=== PATIENT | female | born 1965 | race Caucasian/White ===

== ENCOUNTER 2022-10-07 15:06 | Emergency (ER) | payer SELFPAY ==
--- NOTE | ~2022-10-07 | XR_ITS ---
EXAMINATION: XR ankle RT min 3V DATE: 10/07/2022 15:59 INDICATION: Right ankle swelling post fall down stairs TECHNIQUE: Anteroposterior, oblique, mortise, and lateral views of the right ankle were obtained. COMPARISON: None. FINDINGS: Oblique fracture of the distal metaphysis of the right fibula which exits the medial cortex at the le anabel of the tibiotalar joint line. There is an oblique fracture across the medial malleolus which exte nds to the medial cortex at the angle of the ankle mortise. Both fractures are minimally displaced wi th minimal anterior angulation of the fibular fracture. No fracture of the posterior malleolus or rima ar dome. Prominent soft tissue swelling about the right ankle. There also appears be an ankle joint e ffusion. Joint spaces are normal. IMPRESSION: 1. Minimally displaced medial and lateral malleolar fractures. Reviewed, dictated and finalized at location [facility]
[2022-10-07 15:11] VITALS: BP 106/69; PULSE 94; RESP 18; TEMP 36.1; O2SAT 100
[2022-10-07] MEDS: HYDROcodone/acetaminophen (*CRX) 5-325 MG TABLET 1 TAB PO (16:34)
--- NOTE | 2022-10-07 17:06 | ED.LOWEXIN ---
HPI - Extremity Injury (Lower) General Chief Complaint: Extremity Injury, Lower Stated Complaint: fell down 2 stairs, right ankle pain Time Seen by Provider: 10/07/22 16:25 History of Present Illness HPI Narrative: Patient is a 57-year-old female who presents ER with right ankle injury. Was walking down 2 stairs when she suffered an inversion injury. Sudden onset pain and unable to bear weight. Has swelling bilateral malleoli. No numbness or tingling. Did not fall and strike her head or lose consciousness. Symptoms only improved by sitting still. Related Data Allergies Allergy/AdvReac Type Severity Reaction Status Date / Time shellfish derived Allergy Severe Anaphylaxis Verified 10/07/22 16:11 Review of Systems Review of Systems: All systems reviewed & are unremarkable except as noted in HPI and below Constitutional: Constitutional: Denies chills and Denies fever(s) Gastrointestinal: Gastrointestinal: Denies nausea and Denies vomiting Musculoskeletal: Musculoskeletal: Reports arthralgias and Reports joint swelling Neurologic: Denies syncope, Denies focal weakness and Denies numbness PMFSH Past Medical History Medical History (Updated 10/07/22 @ 17:16 by Roland Mora MD) Asthma Surgical History Surgical History (Updated 10/07/22 @ 17:16 by Roland Mora MD) History of partial hysterectomy Social History Social History (Updated 10/07/22 @ 17:16 by Roland Mora MD) Smoking status: Never smoker Exam Narrative: GENERAL: Well-appearing, well-nourished, and in no acute distress. HEAD: Normocephalic, atraumatic. HEART: Regular rate and rhythm. Normal peripheral pulses. EXTREMITIES: Right ankle with bimalleolar tenderness and swelling. Normal dorsalis pedis and posterior tibial pulses. Sensation intact. No tenderness or deformity to the knee/proximal tib-fib. SKIN: Warm, dry, no rash. NEURO: No focal deficits. Alert and oriented x3. PSYCH: Normal mood and affect. Course Course Emergency Course: Patient educated on how to use crutches. Discussed avoidance strategies for blood clots since they will be driving back to [facility]. Disc was provided with images. Discharge. Vital Signs Vital signs: Vital Signs Temperature 97.0 F L 10/07/22 15:11 Pulse Rate 94 10/07/22 15:11 Respiratory Rate 18 10/07/22 15:11 Blood Pressure 106/69 10/07/22 15:11 Pulse Oximetry 100 10/07/22 15:11 Oxygen Delivery Room Air 10/07/22 15:11 Temperature 97.0 F L 10/07/22 15:11 Pulse Rate 94 10/07/22 15:11 Respiratory Rate 18 10/07/22 15:11 Blood Pressure 106/69 10/07/22 15:11 Pulse Oximetry 100 10/07/22 15:11 Oxygen Delivery Room Air 10/07/22 15:11 Procedures Orthopedic Splinting/Casting Injury #1: Splinting/Casting Date: 10/07/22 Splinting/Casting Time: 16:45 Side: right Lower Extremity Injury Location: ankle Splint: customized in ED OCL: stirrup Pre-Procedure Neuro Vascular Exam: normal Post-Procedure Neuro Vascular Exam: normal Other Orthopedic Equipment: crutches MDM - Extremity Injury (Lower) Imaging Data Radiologist's impression: ITS Impressions Ankle X-Ray 10/07/22 16:02 IMPRESSION: 1. Minimally displaced medial and lateral malleolar fractures. Discharge Plan Discharge Clinical Impression: Bimalleolar ankle fracture Patient Disposition: Home, Self-Care Condition: Stable Instructions: Ankle Fracture (ED), Crutch Instructions (ED) Additional Instructions: You suffered a bad ankle fracture that will likely require surgery. Find an orthopedic surgeon at home when you arrive. While you are driving its recommended you take full dose aspirin 325 mg and stop every 2 hours to get out of the car him move around in hopes to avoid developing a blood clot. Return to an ER immediately if you should have chest pain or shortness of breath, you lose consciousness, yo
== END 2022-10-07 17:16 | disposition home or self-care (01) ==
PROVIDERS: Emergency Provider Emergency Medicine
DX: S82.841A Displaced bimalleolar fracture of right lower leg, initial encounter for closed fracture (principal); J45.909 Unspecified asthma, uncomplicated; X50.9XXA Other and unspecified overexertion or strenuous movements or postures, initial encounter
CPT/HCPCS: 29515; 73610; 99284; A9270